=== PATIENT | male | born 1955 | race Caucasian/White ===

== ENCOUNTER → 2024-01-13 08:53 | Outpatient (REF) | payer BC, SELFPAY ==
[2024-01-13 12:16] LABS: HDL Cholesterol 41 mg/dl; LDL Cholesterol, Calculated 64 mg/dl; Total Cholesterol 139 mg/dl (50-199); Triglyceride 171 mg/dl (10-149); Very Low Density Lipoprotein 34 mg/dl (0-30)
== END ==
LOC: HWLAB 08:53
PROVIDERS: ATTENDING PHYSICIAN Internal Medicine; FAMILY PHYSICIAN Nurse Practitioner Family
DX: I25.5 Ischemic cardiomyopathy (principal); E78.2 Mixed hyperlipidemia; I25.10 Atherosclerotic heart disease of native coronary artery without angina pectoris
CPT/HCPCS: 36415; 80061

== ENCOUNTER → 2024-04-01 08:11 | Outpatient (REF) | payer BC, SELFPAY ==
[2024-04-01 10:56] LABS: % Basophils 0.8 % (0-2); % Eosinophils 3.6 % (0-6); % Immature Granulocytes 0.5 % (0-0.5); % Lymphocytes 27.7 % (20.5-51.1); % Monocytes 6.7 % (1.7-9.3); % Neutrophils 60.7 % (42.2-75.2); Absolute Basophils 0.1 10^3/uL (0-0.2); Absolute Eosinophils 0.2 10^3/uL (0-0.7); Absolute Lymphocytes 1.8 10^3/uL (1.2-3.4); Absolute Monocytes 0.4 10^3/uL (0.1-0.6); Absolute Neutrophils 3.9 10^3/uL (1.4-6.5); Hemoglobin 15.7 g/dL (13.0-18.0); Mean Corp Hgb Conc. 33.4 g/dL (33.0-37.0); Mean Corpuscular Hgb 28.5 pg (27.0-31.0); Mean Corpuscular Volume 85.5 fL (80.0-94.0); Nucleated Red Blood Cells % 0 % (-); Platelet Count 188 10^3/uL (130-400); Red Cell Dist. Width 13.5 % (11.5-14.5); White Blood Cell Count 6.5 10^3/uL (4.8-10.8)
[2024-04-01 11:59] LABS: ALT (SGPT) 30 U/L (0-50); AST (SGOT) 26 U/L (17-59); Albumin 4.5 g/dl (3.5-5.0); Alkaline Phosphatase 76 U/L (38-126); Blood Urea Nitrogen 13 mg/dl (9-20); Calcium 9.7 mg/dl (8.4-10.2); Carbon Dioxide 28 mmol/L (22-30); Chloride 103 mmol/L (98-107); Glucose 155 mg/dl (70-99); Potassium 4.4 mmol/L (3.5-5.1); Sodium 138 mmol/L (135-145); Total Bilirubin 1.7 mg/dl (0.2-1.3); Total Protein 7.4 g/dl (6.3-8.2); eGFR > 60.00
== END ==
LOC: HWLAB 08:11
PROVIDERS: ATTENDING PHYSICIAN Internal Medicine Cardiovascular Disease; FAMILY PHYSICIAN Nurse Practitioner Family
DX: I48.0 Paroxysmal atrial fibrillation (principal); I10 Essential (primary) hypertension; I25.5 Ischemic cardiomyopathy; I25.10 Atherosclerotic heart disease of native coronary artery without angina pectoris
CPT/HCPCS: 36415; 80053; 85025; 86850; 86900; 86901

== ENCOUNTER 2024-04-06 05:57 | Day surgery (SDC) | payer BC, SELFPAY ==
[2024-04-06] VITALS (15 sets, daily range): BP systolic 93–123; BP diastolic 61–93; BMI 38.3
[2024-04-06] MEDS: NSS 500 IV (06:35)
[2024-04-06] MEDS: TYLENOL 650 MG PO (10:36)
--- NOTE | 2024-04-06 10:44 | ITS.CL.ABL ---
Addendum entered and electronically signed by Lit Cunningham MD 04/12/24 14:08:
Figures from the case:
Original Note:
Roll Grinder - Ablation
Ablation
Procedure Report:
AFIB ablation:
Mr. Kinsey is a very pleasant 68 yr old gentleman with paroxysmal atrial fibrillation (status post PVI 11/25/[address] Cunningham - [facility]) on sotalol and Eliquis, PATRICE, CAD, HTN HPL, and morbid obesity
Presented with recurrent paroxysmal atrial fibrillation and presented today to the EP lab for atrial fibrillation ablation
Date of the Procedure:
04/06/2024
Indications:
Paroxysmal recurrent atrial fibrillation
Pre-Operative Diagnosis:
Paroxysmal Atrial fibrillation
Post-Operative Diagnosis:
Paroxysmal Atrial fibrillation
Procedure Performed:
Atrial fibrillation Redo ablation with wide area circumferential ablation (WACA) approach for pulmonary vein re-isolation
Focal atrial tachycardia of left atrium from mitral isthmus
Performing Physician:
Lit Cunningham MD
Assistants:
EP staff
Anesthesia:
See anesthesia records
Detailed Description of the Procedure:
Written informed consent was obtained from the patient after a full explanation of the risks and benefits of the procedure including the risks of sedation and anesthesia.
The patient was brought to the electrophysiology laboratory in stable condition in fasting state. Continuous electrocardiographic and hemodynamic monitoring was initiated.
The initial rhythm was normal sinus rhythm.
The procedure site was meticulously prepared with surgical scrub and allowed to dry with no pooling. Sterile draping was applied to cover the procedure site. The image intensifier was draped with sterile bag and positioned over the patient. After
infusion of local anesthetic, vascular access was obtained under ultrasound guidance and sheaths were placed over guide wire as detailed below.
Sheath and Catheter Placement:
The following catheters / sheaths were placed
Sheaths:
��������� Agilis sheath in right femoral vein upgraded from 8Fr in right femoral vein
��������� 9Fr in left femoral vein
��������� 7Fr in left femoral vein
Catheters:
��������� Biosense Rice Thermocool STSF bidirectional� - at locations of HRA, RV, LA and LV.
��������� Pentaray catheter � at locations of RA, RV, LA and LV
��������� ICE catheter -AcuNav -� at locations of RA, SVC, and RV.
��������� Decapolar catheter in RA and CS
Intracardiac ECHO:
An 8-Marshallese AcuNav intracardiac ECHO (ICE) probe was advanced through the 9-Marshallese sheath in the right femoral vein into the right atrium under fluoroscopic and ICE ultrasound image guidance and a baseline ECHO study was performed. The left atrial
size was dilated. There was mild to moderate tricuspid regurgitation. The aortic valve was grossly normal. There was borderline normal left ventricular size and function. There is trace pericardial effusion. The RUSTAM has normal velocities noted on
Doppler. All the four veins were identified and has good flow identified.
During the procedure, ICE was used for monitoring of complications, guidance of trans-septal puncture, monitor the catheter position and tracking ablation lesions. No change in the pericardial space noted throughout the procedure.
Transseptal Puncture:
Heparin was initiated and infused to maintain appropriate ACT. A J-tipped guidewire was advanced through the 8-Marshallese sheath in the right femoral vein into the superior vena cava under fluoroscopic and ICE guidance. The 8-Marshallese sheath was exchanged
for an Agilis sheath which was advanced into the superior vena cava. A BRK transseptal needle was advanced until the tip was slightly behind the tip of the dilator inside the sheath. The apparatus was withdrawn until it was in contact with the fossa
ovalis. The position was adjusted based on fluoroscopy and ultrasound images from ICE. Under fluoroscopic, hemodynamic and ICE ultrasound guidance, left atrium was cannulated by advancing the needle. Once atrial septum was cannulated, the needle was
pulled back and a BMW guide wire was advanced through the needle into the left atrium. The guide wire was advanced into the left superior pulmonary vein. Both the sheath and the dilator was advanced into the left atrium under fluoro and ICE
guidance. The dilator with the needle was withdrawn. Blood was aspirated from the Agilis sheath and arterial blood confirmed. The sheath was flushed. Saline injection noted into the left atrium on ICE. The mapping catheter was advanced in the Agilis
sheath into the left pulmonary vein.
3D Electroanatomic Mapping:
Using the Pentaray catheter advanced through Agilis sheath into the left atrium, an electroanatomic map (EAM) of the left atrium was created using [employer] Carto mapping system. The map was used for localization of catheter position and
tacking of ablation lesions. The EAM of the left atrium showed 4 pulmonary veins with left superior pulmonary vein was electrically connected to the body the LA. It showed minimal scar in the LA body. The LA was dilated in size.
The PV electrograms were studied and mapped. The earliest connection was noted to be coming from the carinal area. Multiple other connections were noted and ablated one after the other when the earliest one was eliminated.
Following the EAM, preparation were made for ablation.
Ablation:
Ablation # 1: Pulmonary vein Isolation:
Radiofrequency ablation was performed using an open irrigation, force-sensing 3.5mm radiofrequency ablation catheter (ThermocoIDx STSF) by completing the circumferential lesions around the left pulmonary veins achieving pulmonary vein isolation.
Epicardial areas were ablated and a carinal line was fomred connecting the anterior lesison to the posterior lesions.
All the ablation lesions were guided by the UpNext SURPOINT module with the posterior lesions were limited to 45 silva for SURPOINT lesion index goal of 400 and anterior wall lesions were limited to SURPOINT index goal of 450.
The esophagus was noted to be on the mid of the LA based on the locations of the esophageal temperature probe. Ablation was stopped for any temperature increase of 0.1 degree C. Max esophageal temperature was 37.6C.
Ablation # 2: Focal atrial tachycardia ablation:
The tachycardia was mapped. It was eccentric on the CS activation pattern. The origin was mapped in detail and was coming from a focal source at the mitral isthmus anterior and inferior to the LIPV.
The focal area was ablated using radiofrequency Thermocool STSF catheter guided by the UpNext SURPOINT module with the lesions were limited to SURPOINT index goal of 450.
Confirmation of the PVI and bidirectional block:
Following achievement of entrance block at the pulmonary veins, pacing from the pentaray in each of the four veins at 10 milliamps for 2 milliseconds showed entrance and exit block.
EP study:
Normal AV conduction noted.
All PVI were rechecked at the end of the case and remained isolated with dissociated and local capture with pacing. Entrance and exit block were demonstrated in all veins.
Procedure End
ICE study was done again that showed no epicardial accumulation. No complications noted.
Following the completion of the EP study, catheters were removed. Protamine 40 mg was given at the end of the procedure and ACT was checked repeatedly. The sheaths were removed and hemostasis achieved with �figure of 8� suture and manual compression
after acceptable ACT is achieved.
Left atrial Pressure:
Mean LA pressure was 13mmHg
Mean RA pressure was 9mmHg
Estimated Blood loss:
<10 cc
Specimens Removed:
None.
Implants / Devices:
None
Urine output:
None
Packs / Drains/ Tubes:
None
Instrument / Sponge Count Correct:
Yes
Complications of the Procedure:
None
Condition of Patient at Time of Transfer:
Hemodynamically stable with no neurological or vascular compromise.
Summary:
Successful atrial fibrillation ablation with circumferential bidirectional line of block at pulmonary venin antra (Pulmonary vein isolation), Epicardial connection ablation with carinal line formation, focal left atrial tachycardia ablation from the
left atrial origin at mitral isthmus location.
[2024-04-06] MEDS: NOVOLOG vial 2 UNITS SC ×3 (11:05→15:05)
--- NOTE | 2024-04-06 14:58 | PTCARENOTE ---
Pt bled in the bathroom after voiding at 1440. Pressure held for 10 minutes and site reassessed. No active bleeding noted. New dressing remained dry. Yuliet BUTCHER notified. Was advised to retain pt on bedrest and reattempt OOB/ambulation at 1530.
--- NOTE | 2024-04-06 15:38 | PTCARENOTE ---
Pt ambulated again at 1530. No bleeding post ambulation, no hematooma or groin pain.Work of breathing easy but sats remain at 90 in RA. Pt agreed to taking inhaler upon arrival home. Yuliet BUTCHER aware of sats.
[2024-04-06 15:39] LABS: ACT-LR - POC 329 Seconds (116-155)
[2024-04-06 15:39] LABS: ACT-LR - POC 380 Seconds (116-155)
--- NOTE | 2024-04-06 16:02 | W.PN.UPDATE ---
Update Note
Progress Note Update
Pt seen post PVI. Right groin without ht, mild oozing with initial OOB but manual compression held and now no oozing/bleeding. Post EKG NSR 70s w/old anteroseptal Q waves, no acute changes. Resume eliquis today. Continue other meds as before.
Followup at [facility] as scheduled. Home today if groin site/tele remain stable.
== END 2024-04-06 16:00 | disposition home or self-care (01) ==
LOC: CATH 05:57
PROVIDERS: ATTENDING PHYSICIAN Internal Medicine Cardiovascular Disease; FAMILY PHYSICIAN Nurse Practitioner Family
DX: I48.0 Paroxysmal atrial fibrillation (principal); I47.19 Other supraventricular tachycardia; I25.10 Atherosclerotic heart disease of native coronary artery without angina pectoris; Z95.5 Presence of coronary angioplasty implant and graft; J44.9 Chronic obstructive pulmonary disease, unspecified; G47.33 Obstructive sleep apnea (adult) (pediatric); E11.9 Type 2 diabetes mellitus without complications
CPT/HCPCS: C1894; C1730; C1732 ×2; C1766; C1769; C1892; C1759; 76937; 85347; 86850; 86900; 86901; 93005; 93655; 93656

== ENCOUNTER → 2024-04-26 07:10 | Outpatient (REF) | payer BC, SELFPAY ==
[2024-04-26 10:00] LABS: % Basophils 1.2 % (0-2); % Eosinophils 3.7 % (0-6); % Immature Granulocytes 0.7 % (0-0.5); % Lymphocytes 23.5 % (20.5-51.1); % Neutrophils 63.9 % (42.2-75.2); Absolute Basophils 0.1 10^3/uL (0-0.2); Absolute Eosinophils 0.3 10^3/uL (0-0.7); Absolute Immature Granulocytes 0.1 10^3/uL (0-0.05); Absolute Lymphocytes 1.6 10^3/uL (1.2-3.4); Absolute Monocytes 0.5 10^3/uL (0.1-0.6); Absolute Neutrophils 4.4 10^3/uL (1.4-6.5); Hematocrit 47.1 % (39.0-52.0); Hemoglobin 15.5 g/dL (13.0-18.0); Mean Corp Hgb Conc. 32.9 g/dL (33.0-37.0); Mean Corpuscular Hgb 27.9 pg (27.0-31.0); Mean Corpuscular Volume 84.9 fL (80.0-94.0); Nucleated Red Blood Cells % 0 % (-); Platelet Count 198 10^3/uL (130-400); Red Blood Cell Count 5.55 10^6/uL (4.70-6.10); Red Cell Dist. Width 14.1 % (11.5-14.5); White Blood Cell Count 6.8 10^3/uL (4.8-10.8)
[2024-04-26 10:16] LABS: Glycohemoglobin (HgbA1c) 8.6 % (4.0-5.6)
[2024-04-26 10:18] LABS: ALT (SGPT) 26 U/L (0-50); AST (SGOT) 30 U/L (17-59); Albumin 4.6 g/dl (3.5-5.0); Alkaline Phosphatase 78 U/L (38-126); Blood Urea Nitrogen 16 mg/dl (9-20); Calcium 9.7 mg/dl (8.4-10.2); Carbon Dioxide 26 mmol/L (22-30); Chloride 103 mmol/L (98-107); Glucose 150 mg/dl (70-99); HDL Cholesterol 40 mg/dl; LDL Cholesterol, Calculated 98 mg/dl; Potassium 4.5 mmol/L (3.5-5.1); Sodium 140 mmol/L (135-145); Total Bilirubin 2.6 mg/dl (0.2-1.3); Total Cholesterol 174 mg/dl (50-199); Total Protein 7.6 g/dl (6.3-8.2); Triglyceride 182 mg/dl (10-149); Very Low Density Lipoprotein 36 mg/dl (0-30); eGFR > 60.00
[2024-04-26 10:43] LABS: TSH Reflex To Free T4 1.14 uIU/ml (0.47-4.68)
[2024-04-26 11:18] LABS: Microalbumin/creatinine Ratio 9.9 mg/g
== END ==
LOC: HWLAB 07:10
PROVIDERS: ATTENDING PHYSICIAN Nurse Practitioner Family
DX: I48.0 Paroxysmal atrial fibrillation (principal); I10 Essential (primary) hypertension; E11.9 Type 2 diabetes mellitus without complications; I25.5 Ischemic cardiomyopathy; E78.2 Mixed hyperlipidemia
CPT/HCPCS: 36415; 80053; 80061; 82043; 82570; 83036; 84443; 85025

== ENCOUNTER → 2024-08-11 07:32 | Outpatient (REF) | payer BC, SELFPAY ==
[2024-08-11 12:13] LABS: ALT (SGPT) 25 U/L (0-50); AST (SGOT) 24 U/L (17-59); Albumin 4.4 g/dl (3.5-5.0); Alkaline Phosphatase 63 U/L (38-126); Blood Urea Nitrogen 14 mg/dl (9-20); Calcium 9.5 mg/dl (8.4-10.2); Carbon Dioxide 27 mmol/L (22-30); Chloride 101 mmol/L (98-107); Glucose 159 mg/dl (70-99); HDL Cholesterol 41 mg/dl; LDL Cholesterol, Calculated 47 mg/dl; Potassium 4.8 mmol/L (3.5-5.1); Sodium 140 mmol/L (135-145); Total Bilirubin 2.2 mg/dl (0.2-1.3); Total Cholesterol 119 mg/dl (50-199); Total Protein 7.3 g/dl (6.3-8.2); Triglyceride 155 mg/dl (10-149); Very Low Density Lipoprotein 31 mg/dl (0-30); eGFR > 60.00
== END ==
LOC: HWLAB 07:32
PROVIDERS: ATTENDING PHYSICIAN Nurse Practitioner Family
DX: E11.59 Type 2 diabetes mellitus with other circulatory complications (principal); Z79.4 Long term (current) use of insulin; J45.909 Unspecified asthma, uncomplicated; I10 Essential (primary) hypertension; I48.0 Paroxysmal atrial fibrillation; Z95.5 Presence of coronary angioplasty implant and graft; G47.33 Obstructive sleep apnea (adult) (pediatric); E78.2 Mixed hyperlipidemia; E66.01 Morbid (severe) obesity due to excess calories; K21.9 Gastro-esophageal reflux disease without esophagitis; Z12.11 Encounter for screening for malignant neoplasm of colon; Z86.0109 Personal history of other colon polyps
CPT/HCPCS: 36415; 80053; 80061; 83036

== ENCOUNTER → 2024-12-28 08:12 | Outpatient (REF) | payer BC, SELFPAY ==
[2024-12-28 09:48] LABS: % Basophils 0.8 % (0-2); % Eosinophils 2.8 % (0-6); % Immature Granulocytes 0.6 % (0-0.5); % Lymphocytes 18.8 % (20.5-51.1); % Monocytes 5.1 % (1.7-9.3); % Neutrophils 71.9 % (42.2-75.2); Absolute Basophils 0.1 10^3/uL (0-0.2); Absolute Eosinophils 0.2 10^3/uL (0-0.7); Absolute Immature Granulocytes 0.1 10^3/uL (0-0.05); Absolute Lymphocytes 1.5 10^3/uL (1.2-3.4); Absolute Monocytes 0.4 10^3/uL (0.1-0.6); Absolute Neutrophils 5.7 10^3/uL (1.4-6.5); Hematocrit 49.3 % (39.0-52.0); Hemoglobin 16.5 g/dL (13.0-18.0); Mean Corp Hgb Conc. 33.5 g/dL (33.0-37.0); Mean Corpuscular Hgb 29.2 pg (27.0-31.0); Mean Corpuscular Volume 87.3 fL (80.0-94.0); Nucleated Red Blood Cells % 0 % (-); Platelet Count 183 10^3/uL (130-400); Red Blood Cell Count 5.65 10^6/uL (4.70-6.10); Red Cell Dist. Width 13.9 % (11.5-14.5); White Blood Cell Count 7.9 10^3/uL (4.8-10.8)
[2024-12-28 10:14] LABS: ALT (SGPT) 36 U/L (0-50); AST (SGOT) 28 U/L (17-59); Albumin 4.9 g/dl (3.5-5.0); Alkaline Phosphatase 72 U/L (38-126); Blood Urea Nitrogen 15 mg/dl (9-20); Calcium 9.7 mg/dl (8.4-10.2); Carbon Dioxide 26 mmol/L (22-30); Chloride 100 mmol/L (98-107); Glucose 174 mg/dl (70-99); HDL Cholesterol 37 mg/dl; LDL Cholesterol, Calculated 54 mg/dl; Potassium 4.8 mmol/L (3.5-5.1); Sodium 136 mmol/L (135-145); Total Bilirubin 2.9 mg/dl (0.2-1.3); Total Cholesterol 125 mg/dl (50-199); Total Protein 7.7 g/dl (6.3-8.2); Triglyceride 170 mg/dl (10-149); Very Low Density Lipoprotein 34 mg/dl (0-30); eGFR > 60.00
[2024-12-28 10:25] LABS: Glycohemoglobin (HgbA1c) 8.8 % (4.0-5.6)
[2024-12-28 10:36] LABS: Microalbumin, Random Urine 0.6 mg/dl (0.6-1.7); Microalbumin/creatinine Ratio 7.1 mg/g
[2024-12-28 10:47] LABS: PSA, Total - Screen 0.45 ng/ml (0.0-4.0); TSH Reflex To Free T4 0.99 uIU/ml (0.47-4.68)
== END ==
LOC: HWLAB 08:12
PROVIDERS: ATTENDING PHYSICIAN Nurse Practitioner Family; REFERRING PHYSICIAN Internal Medicine
DX: I48.0 Paroxysmal atrial fibrillation (principal); I10 Essential (primary) hypertension; E11.9 Type 2 diabetes mellitus without complications; E78.2 Mixed hyperlipidemia; Z12.5 Encounter for screening for malignant neoplasm of prostate
CPT/HCPCS: 36415; 80053; 80061; 82043; 82570; 83036; 84443; 85025; G0103

== ENCOUNTER → 2025-05-12 07:56 | Outpatient (REF) | payer BC, SELFPAY ==
[2025-05-12 09:59] LABS: Hematocrit 50.3 % (39.0-52.0); Hemoglobin 16.7 g/dL (13.0-18.0); Mean Corp Hgb Conc. 33.2 g/dL (33.0-37.0); Mean Corpuscular Volume 88.4 fL (80.0-94.0); Platelet Count 205 10^3/uL (130-400); Red Cell Dist. Width 13.5 % (11.5-14.5)
[2025-05-12 10:44] LABS: Glycohemoglobin (HgbA1c) 8.0 % (4.0-5.6)
[2025-05-12 10:51] LABS: Microalb - Urine Creatinine 102.600 mg/dl
[2025-05-12 10:56] LABS: Microalbumin, Random Urine 0.7 mg/dl (0.6-1.7)
[2025-05-12 11:07] LABS: HDL Cholesterol 39 mg/dl; LDL Cholesterol, Calculated 42 mg/dl; Very Low Density Lipoprotein 41 mg/dl (0-30)
[2025-05-12 11:29] LABS: TSH 0.80 uIU/ml (0.47-4.68)
== END ==
LOC: HWLAB 07:56
PROVIDERS: ATTENDING PHYSICIAN Physician Assistant; FAMILY PHYSICIAN Nurse Practitioner Family
DX: E11.65 Type 2 diabetes mellitus with hyperglycemia (principal)
CPT/HCPCS: 36415; 80061; 82043; 82570; 83036; 84156; 84443; 84681; 85027

== ENCOUNTER → 2025-08-23 08:48 | Outpatient (REF) | payer BC, SELFPAY ==
[2025-08-23 10:18] LABS: Hematocrit 47.7 % (39.0-52.0); Hemoglobin 15.7 g/dL (13.0-18.0); Mean Corp Hgb Conc. 32.9 g/dL (33.0-37.0); Mean Corpuscular Volume 89.2 fL (80.0-94.0); Platelet Count 198 10^3/uL (130-400); Red Cell Dist. Width 13.8 % (11.5-14.5)
[2025-08-23 10:35] LABS: ALT (SGPT) 30 U/L (0-50); AST (SGOT) 27 U/L (17-59); Albumin 4.7 g/dl (3.5-5.0); Alkaline Phosphatase 65 U/L (38-126); Blood Urea Nitrogen 17 mg/dl (9-20); Calcium 9.6 mg/dl (8.4-10.2); Carbon Dioxide 28 mmol/L (22-30); Chloride 104 mmol/L (98-107); Glucose 141 mg/dl (70-99); Potassium 4.7 mmol/L (3.5-5.1); Sodium 139 mmol/L (135-145); Total Protein 7.7 g/dl (6.3-8.2); eGFR > 60.00
[2025-08-23 10:57] LABS: Glycohemoglobin (HgbA1c) 7.8 % (4.0-5.6)
== END ==
LOC: HWLAB 08:48
PROVIDERS: ATTENDING PHYSICIAN Internal Medicine; FAMILY PHYSICIAN Nurse Practitioner Family; REFERRING PHYSICIAN Physician Assistant
DX: I25.5 Ischemic cardiomyopathy (principal); E11.65 Type 2 diabetes mellitus with hyperglycemia
CPT/HCPCS: 36415; 80053; 83036; 85027